=== PATIENT | male | born 1990 | race Caucasian/White ===

== ENCOUNTER 2016-11-19 13:20 | Emergency (ER) | payer MEDICAID, OTHER ==
[2016-11-19 13:32] VITALS: BP 151/90
[2016-11-19 14:22] LABS: Urine Bilirubin Negative (Negative); Urine Glucose Negative (Negative); Urine Nitrite Negative (Negative)
[2016-11-19 14:34] LABS: Benzodiazepine Urine Screen None Detected (None Detect)
[2016-11-19] MEDS ORDERED: LORazepam TAB(*) 0.5 MG PO ONE ×2 (14:38)
[2016-11-19] MEDS ORDERED: Nicotine Inhaler* 10 MG AMP INH ONE ×2 (14:40)
[2016-11-19 14:53] LABS: Hematocrit 49 % (42-52); Mean Corpuscular HGB Conc 35 g/dl (31-36); Mean Corpuscular Hemoglobin 31 pg (27-31); Mean Corpuscular Volume 90 fL (80-94); Mean Platelet Volume 8 um3 (7.4-10.4); Red Blood Count 5.46 10^6/ul (4.0-5.4); Red Cell Distribution Width 13 % (10.5-15); White Blood Count 11.4 10^3/ul (3.5-10.8)
[2016-11-19] MEDS ORDERED: Mouth Piece, Nicotine* 1 EACH CARTRIDGE INH PRN (15:00)
[2016-11-19 15:04] LABS: ALT 41 U/L (7-52); AST 27 U/L (13-39); Albumin 4.7 g/dL (3.2-5.2); Alkaline Phosphatase 85 U/L (34-104); Anion Gap 8 mmol/L (2-11); BUN/Creatinine Ratio 9.4 (8-20); Blood Urea Nitrogen 8 mg/dL (6-24); CO2 Carbon Dioxide 24 mmol/L (22-32); Chloride 105 mmol/L (101-111); EGFR African American 142.4 (>60); EGFR Non-African American 110.7 (>60); Glucose 96 mg/dL (70-100); Potassium 3.9 mmol/L (3.5-5.0); Sodium 137 mmol/L (133-145); Total Protein 7.7 g/dL (6.4-8.9)
[2016-11-19 15:39] LABS: TSH (Thyroid Stimulating Horm) 2.31 mcIU/mL (0.34-5.60)
[2016-11-19 15:42] LABS: Acetaminophen < 15 mcg/mL; Alcohol < 10 mg/dL (<10); Salicylate < 2.50 mg/dL (<30)
[2016-11-19] MEDS ORDERED: LORazepam TAB(*) 1 MG PO ONE ×2 (16:02)
--- NOTE | 2016-11-19 22:06 | ED ---
Terrence Sanchez Billy, scribed for Rafael Cabral MD on 11/19/16 at 1653 . Psychiatric Complaint - HPI Summary HPI Summary: Patient is a 26 year-old male coming to with SI for the last few days. He states that he has a plan to overdose on a bottle of pills. Per nurse's triage note, he has been "masking his pain by smoking" marijuana. He has a history of depression, but no suicide attempts. He denies any other drugs besides marijuana. - History Of Current Complaint Chief Complaint: EDMentalHealth Time Seen by Provider: 11/19/16 13:53 Hx Obtained From: Patient Onset/Duration: Gradual Onset, Lasting Days, Still Present Timing: Constant Severity Initially: Moderate Severity Currently: Moderate Character: Depressed Aggravating Factor(s): Nothing Alleviating Factor(s): Nothing Associated Signs And Symptoms: Positive: Negative Related History: Positive For: Prior Psychiatric Issues Has Suicidal: Reports: Thoughts, With A Plan. Denies: Demonstrates Gesture, Has Prior Attempt(s) Has Homicidal: Denies: Thoughts, With A Plan, Demonstrates Gesture, Has Prior Attempt(s) - Allergies/Home Medications Allergies/Adverse Reactions: Allergies Allergy/AdvReac Type Severity Reaction Status Date / Time Sulfa Drugs Allergy Severe Swelling Verified 11/19/16 13:32 PMH/Surg Hx/FS Hx/Imm Hx Endocrine/Hematology History: Denies: Hx Anticoagulant Therapy, Hx Diabetes, Hx Thyroid Disease Cardiovascular History: Denies: Hx Congestive Heart Failure, Hx Deep Vein Thrombosis, Hx Hypertension , Hx Myocardial Infarction, Hx Pacemaker/ICD Respiratory History: Reports: Hx Asthma - Exercise induced, Other Respiratory Problems/Disorders - CURRENT Denies: Hx Chronic Obstructive Pulmonary Disease (COPD), Hx Lung Cancer GI History: Denies: Hx Gall Bladder Disease, Hx Gastrointestinal Bleed, Hx Ulcer, Hx Urosepsis History: Denies: Hx Kidney Stones, Hx Renal Disease Sensory History: Denies: Hx Hearing Aid Neurological History: Denies: Hx Dementia, Hx Migraine, Hx Seizures, Hx Transient Ischemic Attacks (TIA) Psychiatric History: Reports: Hx Panic Disorder - ANXIETY, Hx Bipolar Disorder Denies: Hx Anxiety, Hx Depression, Hx Schizophrenia - Surgical History Surgery Procedure, Year, and Place: Gallbladder removed 2010, Big toeNAILS bilateralREMOVED, 2007, left knee SCOPE SUREGERY 2009, right hand BROKEN PINKY WITH PINS/THEN REMOVED PINS, ear tubes as a child Infectious Disease History: No Infectious Disease History: Denies: Hx Clostridium Difficile, Hx Hepatitis, Hx Human Immunodeficiency Virus (HIV), Hx of Known/Suspected MRSA, Hx Shingles, Hx Tuberculosis, History Other Infectious Disease, Traveled Outside the [place] in Last 30 Days - Family History Known Family History: Positive: Cardiac Disease, Hypertension, Diabetes - Social History Alcohol Use: None Substance Use Type: Reports: Marijuana Substance Use Comment - Amount & Last Used: occasional use Smoking Status (MU): Heavy Every Day Tobacco Smoker Type: Cigarettes Amount Used/How Often: 1/2 PPD Length of Time of Smoking/Using Tobacco: 8 years Review of Systems Negative: Fever Positive: Depressed, Other - SI All Other Systems Reviewed And Are Negative: Yes Physical Exam - Summary Physical Exam Summary: VITAL SIGNS: Reviewed. GENERAL: Patient is a obese male who is lying comfortable in the stretcher. Patient is not in any acute respiratory distress. HEAD AND FACE: No signs of trauma. No ecchymosis, hematomas or skull depressions. No sinus tenderness. EYES: PERRLA, EOMI x 2, No injected conjunctiva, no nystagmus. EARS: Hearing grossly intact. Ear canals and tympanic membranes are within normal limits. MOUTH: Oropharynx within normal limits. NECK: Supple, trachea is midline, no adenopathy, no JVD, no carotid bruit, no c- spine tenderness, neck with full ROM. CHEST: Symmetric, no tenderness at palpation LUNGS: Clear to auscultation bilaterally. No wheezing or crackles. CVS: Regular rate and rhythm, S1 and S2 present, no murmurs or gallops appreciated. ABDOMEN: Soft, non-tender. No signs of distention. No rebound no guarding, and no masses palpated. Bowel sounds are normal. EXTREMITIES: FROM in all major joints, no edema, no cyanosis or clubbing. NEURO: Alert and oriented x 3. No acute neurological deficits. Speech is normal and follows commands. SKIN: Dry and warm PSYCH: Depressed, quiet, crying, positive suicidal thoughts with plan. No homicidal thoughts or plan. No signs of psychosis or pressure speech. No tangential speech. Triage Information Reviewed: Yes Vital Signs On Initial Exam: Initial Vitals Temp Pulse Resp BP Pulse Ox 99.9 F 86 18 151/90 99 11/19/16 13:25 11/19/16 13:25 11/19/16 13:25 11/19/16 13:25 11/19/16 13:25 Vital Signs Reviewed: Yes Diagnostics - Vital Signs Vital Signs Temp Pulse Resp BP Pulse Ox 11/19/16 13:25 99.9 F 86 18 151/90 99 - Laboratory Lab Results: Lab Results 11/19/16 11/19/16 11/19/16 Range/Units 14:10 14:10 14:35 WBC 11.4 H (3.5-10.8) 10^3/ul RBC 5.46 H (4.0-5.4) 10^6/ul Hgb 17.0 (14.0-18.0) g/dl Hct 49 (42-52) % MCV 90 (80-94) fL MCH 31 (27-31) pg MCHC 35 (31-36) g/dl RDW 13 (10.5-15) % Plt Count 269 (150-450) 10^3/ul MPV 8 (7.4-10.4) um3 Neut % (Auto) 57.7 (38-83) % Lymph % (Auto) 32.3 (25-47) % Vance % (Auto) 7.3 (1-9) % Eos % (Auto) 2.0 (0-6) % Baso % (Auto) 0.7 (0-2) % Absolute Neuts (auto) 6.6 (1.5-7.7) 10^3/ul Absolute Lymphs (auto) 3.7 (1.0-4.8) 10^3/ul Absolute Monos (auto) 0.8 (0-0.8) 10^3/ul Absolute Eos (auto) 0.2 (0-0.6) 10^3/ul Absolute Basos (auto) 0.1 (0-0.2) 10^3/ul Absolute Nucleated RBC 0.01 10^3/ul Nucleated RBC % 0.1 Sodium (133-145) mmol/L Potassium (3.5-5.0) mmol/L Chloride (101-111) mmol/L Carbon Dioxide (22-32) mmol/L Anion Gap (2-11) mmol/L BUN (6-24) mg/dL Creatinine (0.67-1.17) mg/dL Est GFR ( Amer) (>60) Est GFR (Non-Af Amer) (>60) BUN/Creatinine Ratio (8-20) Glucose (70-100) mg/dL Calcium (8.6-10.3) mg/dL Total Bilirubin (0.2-1.0) mg/dL AST (13-39) U/L ALT (7-52) U/L Alkaline Phosphatase (34-104) U/L Total Protein (6.4-8.9) g/dL Albumin (3.2-5.2) g/dL Globulin (2-4) g/dL Albumin/Globulin Ratio (1-3) TSH (0.34-5.60) mcIU/mL Urine Color Yellow Urine Appearance Clear Urine pH 5.0 (5-9) Ur Specific Taylor 1.024 (1.010-1.030) Urine Protein Negative (Negative) Urine Ketones Negative (Negative) Urine Blood Negative (Negative) Urine Nitrate Negative (Negative) Urine Bilirubin Negative (Negative) Urine Urobilinogen Negative (Negative) Ur Leukocyte Esterase Negative (Negative) Urine Glucose Negative (Negative) Salicylates (<30) mg/dL Urine Opiates Screen None detected (None Detect) Acetaminophen mcg/mL Ur Barbiturates Screen None detected (None Detect) Ur Phencyclidine Scrn None detected (None Detect) Ur Amphetamines Screen None detected (None Detect) U Benzodiazepines Scrn None detected (None Detect) Urine Cocaine Screen None detected (None Detect) U Cannabinoids Screen Presumptive positive H (None Detect) Serum Alcohol (<10) mg/dL 11/19/16 Range/Units 14:35 WBC (3.5-10.8) 10^3/ul RBC (4.0-5.4) 10^6/ul Hgb (14.0-18.0) g/dl Hct (42-52) % MCV (80-94) fL MCH (27-31) pg MCHC (31-36) g/dl RDW (10.5-15) % Plt Count (150-450) 10^3/ul MPV (7.4-10.4) um3 Neut % (Auto) (38-83) % Lymph % (Auto) (25-47) % Vance % (Auto) (1-9) % Eos % (Auto) (0-6) % Baso % (Auto) (0-2) % Absolute Neuts (auto) (1.5-7.7) 10^3/ul Absolute Lymphs (auto) (1.0-4.8) 10^3/ul Absolute Monos (auto) (0-0.8) 10^3/ul Absolute Eos (auto) (0-0.6) 10^3/ul Absolute Basos (auto) (0-0.2) 10^3/ul Absolute Nucleated RBC 10^3/ul Nucleated RBC % Sodium 137 (133-145) mmol/L Potassium 3.9 (3.5-5.0) mmol/L Chloride 105 (101-111) mmol/L Carbon Dioxide 24 (22-32) mmol/L Anion Gap 8 (2-11) mmol/L BUN 8 (6-24) mg/dL Creatinine 0.85 (0.67-1.17) mg/dL Est GFR ( Amer) 142.4 (>60) Est GFR (Non-Af Amer) 110.7 (>60) BUN/Creatinine Ratio 9.4 (8-20) Glucose 96 (70-100) mg/dL Calcium 10.0 (8.6-10.3) mg/dL Total Bilirubin 0.60 (0.2-1.0) mg/dL AST 27 (13-39) U/L ALT 41 (7-52) U/L Alkaline Phosphatase 85 (34-104) U/L Total Protein 7.7 (6.4-8.9) g/dL Albumin 4.7 (3.2-5.2) g/dL Globulin 3.0 (2-4) g/dL Albumin/Globulin Ratio 1.6 (1-3) TSH 2.31 (0.34-5.60) mcIU/mL Urine Color Urine Appearance Urine pH (5-9) Ur Specific Taylor (1.010-1.030) Urine Protein (Negative) Urine Ketones (Negative) Urine Blood (Negative) Urine Nitrate (Negative) Urine Bilirubin (Negative) Urine Urobilinogen (Negative) Ur Leukocyte Esterase (Negative) Urine Glucose (Negative) Salicylates < 2.50 (<30) mg/dL Urine Opiates Screen (None Detect) Acetaminophen < 15 mcg/mL Ur Barbiturates Screen (None Detect) Ur Phencyclidine Scrn (None Detect) Ur Amphetamines Screen (None Detect) U Benzodiazepines Scrn (None Detect) Urine Cocaine Screen (None Detect) U Cannabinoids Screen (None Detect) Serum Alcohol < 10 (<10) mg/dL Result Diagrams: 11/19/16 14:35 11/19/16 14:35 Lab Statement: Any lab studies that have been ordered have been reviewed, and results considered in the medical decision making process. Course/Dx - Course Course Of Treatment: Medically cleared for MHE at 1620. Assessment/Plan: Blood work wnl. Patient is medically cleared. Dr. Arguelles from psychiatry cleared the patient from psych and he recommends to discharge patient home with F/U of PMD and psych as an outpatient. - Differential Dx/Clinical Impression Differential Diagnosis/HQI/PQRI: Positive: Suicidal Ideation Provider Diagnosis: Depression, Anxiety Discharge - Discharge Plan Condition: Stable Disposition: HOME Patient Education Materials: Depression (ED), Anxiety (ED) Referrals: Skyler Garsia MD [Primary Care Provider] - The documentation as recorded by the Terrence kumar Billy accurately reflects the service I personally performed and the decisions made by , Rafael Cabral MD.
== END 2016-11-19 19:10 | disposition home or self-care (01) ==
LOC: ED 13:20
DX: R45.851 Suicidal ideations (principal); F32.9 Major depressive disorder, single episode, unspecified; F41.9 Anxiety disorder, unspecified
CPT/HCPCS: 36415; 80053; 80307; 80320; 80329; 81003; 84443; 85025; 99284; A9270-GY; G0480

== ENCOUNTER 2017-02-27 18:49 | Emergency (ER) | payer MEDICAID | END 2017-02-27 19:36 | disposition left against medical advice (07) | LOC: UCCORT 18:49 | DX: R10.9 Unspecified abdominal pain (principal); Z53.21 Procedure and treatment not carried out due to patient leaving prior to being seen by health care provider ==

== ENCOUNTER 2018-06-17 12:45 | Emergency (ER) | payer MEDICAID ==
--- NOTE | 2018-06-17 13:38 | ED ---
Lower Extremity - HPI Summary HPI Summary: This is scribe Kojo Rodger documenting for attending Rafael Cabral MD. A 27 y/o male presents to ED c/o right calf pain reaching 10/10 in severity. In the ED room, the patient has a pulse of 74 BPM, O2 saturation of 98% and blood pressure of 162/69. As per triage, "pt here with severe right lower calf pain for 5 days. unable to bear weight". According to the patient, he has been experiencing severe pain in his right leg calf for the past four days (since Monday). He believes he may have pulled a muscle or done something to it during performance of sexual intercourse. He noted that the calf is swollen and palpation aggravates the pain. He noted that his knee cap feels like it is going to shatter. Pt denies any injury (hitting) or blunt trauma to the area. He also denies any CP, SOB or palpitations. He takes medical marijuana for the pain, however, it has not alleviated the symptoms. Patient has medical marijuana because of his PMHx of chronic back issues. On no other medications. Pt has no other current medical issues. PMHx of cholecystectomy, surgery on toes (both sides), knee surgery, scope surgery. FHx of DM, Alzheimer's and thrombosis. SHx of no recreational drugs (besides medical marijuana), no ciggaretts, no ETOH. I, Dr. Cabral personally performed the services described in this documentation as scribed in my presence and it is both accurate and complete. - History of Current Complaint Chief Complaint: EDExtremityLower Stated Complaint: RT LEG INJURY Time Seen by Provider: 06/17/18 13:19 Hx Obtained From: Patient Mechanism Of Injury: Other - Performance during sexual intercourse. Onset of Pain: Days Onset/Duration: Days Severity Initially: Severe Severity Currently: Severe Pain Intensity: 10 Pain Scale Used: 0-10 Numeric Timing: Constant Location: Is Discrete @ - Right calf. Character Of Pain: Sharp Associated Signs And Symptoms: Positive: Swelling, Knee Pain Aggravating Factor(s): Standing, Movement, Weight Bearing Alleviating Factor(s): Nothing Able to Bear Weight: No - Allergies/Home Medications Allergies/Adverse Reactions: Allergies Allergy/AdvReac Type Severity Reaction Status Date / Time Sulfa (Sulfonamide Allergy Swelling Verified 06/17/18 12:51 Antibiotics) PMH/Surg Hx/FS Hx/Imm Hx Endocrine/Hematology History: Denies: Hx Anticoagulant Therapy, Hx Diabetes, Hx Thyroid Disease Cardiovascular History: Reports: Hx Hypertension Denies: Hx Congestive Heart Failure, Hx Deep Vein Thrombosis, Hx Myocardial Infarction, Hx Pacemaker/ICD Respiratory History: Reports: Hx Asthma - Exercise induced, Other Respiratory Problems/Disorders - CURRENT Denies: Hx Chronic Obstructive Pulmonary Disease (COPD), Hx Lung Cancer GI History: Reports: Hx Gall Bladder Disease, Other GI Disorders - pt states he has some blood in stool, he has started evaluation w/ GI Denies: Hx Gastrointestinal Bleed, Hx Ulcer, Hx Urosepsis History: Denies: Hx Kidney Stones, Hx Renal Disease Musculoskeletal History: Reports: Hx Arthritis, Hx Back Problems Sensory History: Reports: Hx Hearing Problem Denies: Hx Hearing Aid Neurological History: Reports: Hx Headaches, Other Neuro Impairments/Disorders - head injury Denies: Hx Dementia, Hx Migraine, Hx Seizures, Hx Transient Ischemic Attacks (TIA) Psychiatric History: Reports: Hx Panic Disorder - ANXIETY, Hx Bipolar Disorder, Hx of Violent Episodes Against Others Denies: Hx Anxiety, Hx Eating Disorder, Hx Depression, Hx Schizophrenia - Surgical History Surgery Procedure, Year, and Place: Gallbladder removed 2010, Big toeNAILS bilateralREMOVED, 2007, left knee SCOPE SUREGERY 2009, right hand BROKEN PINKY WITH PINS/THEN REMOVED PINS, ear tubes as a child Infectious Disease History: No Infectious Disease History: Denies: Hx Clostridium Difficile, Hx Hepatitis, Hx Human Immunodeficiency Virus (HIV), Hx of Known/Suspected MRSA, Hx Shingles, Hx Tuberculosis, History Other Infectious Disease, Traveled Outside the [place] in Last 30 Days - Family History Known Family History: Positive: Cardiac Disease, Hypertension, Diabetes - Social History Alcohol Use: Rare Substance Use Type: Reports: Marijuana, Prescribed Substance Use Comment - Amount & Last Used: trmadol and he is prescribed maijuana though the [facility] program Smoking Status (MU): Current Some Day Smoker Type: Cigarettes Amount Used/How Often: ! pack every 2-3 days Length of Time of Smoking/Using Tobacco: 8 years Review of Systems Negative: Fever Negative: Palpitations, Chest Pain Negative: Shortness Of Breath Positive: Other - POSITIVE: Right calf pain All Other Systems Reviewed And Are Negative: Yes Physical Exam - Summary Physical Exam Summary: VITAL SIGNS: Reviewed. GENERAL: Patient is a well-developed and obese male who is lying comfortable in the stretcher. Patient is not in any acute respiratory distress. HEAD AND FACE: No signs of trauma. No ecchymosis, hematomas or skull depressions. No sinus tenderness. EYES: PERRLA, EOMI x 2, No injected conjunctiva, no nystagmus. EARS: Hearing grossly intact. Ear canals and tympanic membranes are within normal limits. MOUTH: Oropharynx within normal limits. NECK: Supple, trachea is midline, no adenopathy, no JVD, no carotid bruit, no c- spine tenderness, neck with full ROM. CHEST: Symmetric, no tenderness at palpation LUNGS: Clear to auscultation bilaterally. No wheezing or crackles. CVS: Regular rate and rhythm, S1 and S2 present, no murmurs or gallops appreciated. ABDOMEN: Soft, non-tender. No signs of distention. No rebound no guarding, and no masses palpated. Bowel sounds are normal. EXTREMITIES: Right calf tenderness, reproducible pain with palpation. NEURO: Alert and oriented x 3. No acute neurological deficits. Speech is normal and follows commands. SKIN: Dry and warm Triage Information Reviewed: Yes Vital Signs On Initial Exam: Initial Vitals Temp Pulse Resp BP Pulse Ox 98.7 F 74 22 128/81 98 06/17/18 12:52 06/17/18 12:52 06/17/18 12:52 06/17/18 12:52 06/17/18 12:52 Vital Signs Reviewed: Yes Diagnostics - Vital Signs Vital Signs Temp Pulse Resp BP Pulse Ox 06/17/18 12:52 98.7 F 74 22 128/81 98 - Laboratory Result Diagrams: 06/17/18 14:12 06/17/18 14:12 Lab Statement: Any lab studies that have been ordered have been reviewed, and results considered in the medical decision making process. - Ultrasound No standard instances Ultrasound Interpretation Completed By: Radiologist - DEEP VENOUS THROMBOSIS WITHIN THE POPLITEAL, POSTERIOR TIBIAL AND PERONEAL VEINS. ED PHYSICIAN REVIEWED THIS RADIOLOGY REPORT. Lower Extremity Course/Dx - Course Course Of Treatment: The patient was found to have increased BP in [facility]. The patient will follow up with PCP for better control of BP. Assessment/Plan: This patient is a 27-year-old male who presents to the emergency department with chief complaint of having left calf pain. He reports that the pain has been present for the last couple days but today has worsened. He denies any chest pain, shortness of breath, he denies any palpitations. He has past medical history significant for chronic back pain for which he takes daily medical marijuana and codeine tablets. He also has past medical history significant for cholecystectomyPatient has no other complaints. Blood test results without any significant abnormality. Pylorectomy ultrasound impression: Deep venous thrombosis within the popliteal, posterior tibial and peroneal veins. The patient was given 1 dose of Eliquis and he will be discharged home with a prescription for Eliquis. The patient was given instructions about taking blood thinners and will prevent any type of trauma, also he is unable to take any ibuprofen, NSAIDs medications for pain. He understands and agrees. He is to follow with the primary care physician in the next 2 to 3 days. - Diagnoses Differential Diagnosis/HQI/PQRI: Positive: Bursitis, Cellulitis, Contusion, DVT , Phlebitis, Sprain, Strain Provider Diagnoses: DVT (deep venous thrombosis) Discharge - Sign-Out/Discharge Documenting (check all that apply): Patient Departure - DISCHARGE - Discharge Plan Condition: Critical Disposition: HOME Prescriptions: Apixaban* [Eliquis*] 10 mg PO BID #28 tab Apixaban* [Eliquis*] 5 mg PO BID #32 tab Patient Education Materials: Deep Vein Thrombosis (ED), Leg Edema (ED), Knee Pain (ED), Leg Pain (ED) Referrals: Skyler Garsia MD [Primary Care Provider] - 3 Days Additional Instructions: DO NOT TAKE ANY IBUPROFEN, NAPROXEN OR ANY NONSTEROIDAL ANTI-INFLAMMATORY DRUGS. TAKE ELIQUIS PRESCRIBED. FOLLOW UP WITH PRIMARY CARE IN 3 DAYS. FOLLOW UP WITH YOUR PRIMARY CARE PROVIDER WITHIN ONE WEEK FOR HIGH BLOOD PRESSURE NOTED TODAY. RETURN TO ED FOR ANY WORSENING OR NEW SYMPTOMS. Attestations Scribe Attestation: This is stacy Soares documenting for attending Rafael Cabral MD. User Type: Provider with Scribe Provider Attestation: The documentation recorded by the scribe accurately reflects the service I personally performed and the decisions made by me.
--- NOTE | 2018-06-17 13:56 | RAD ---
INDICATION: Right calf pain. COMPARISON: There are no prior studies available for comparison. TECHNIQUE: Multiple real-time, color flow and Doppler tracings of the right lower extremity were obtained. FINDINGS: The common femoral, femoral and profunda femoral and popliteal veins all demonstrate normal compressibility and phasic response with respiration. There is nearly occlusive thrombus present within the popliteal vein and occlusive thrombus within the posterior tibial and peroneal veins. IMPRESSION: DEEP VENOUS THROMBOSIS WITHIN THE POPLITEAL, POSTERIOR TIBIAL AND PERONEAL VEINS.
[2018-06-17 14:33] LABS: ABS Basophils 0 10^3/ul (0-0.2); ABS Eosinophils 0.2 10^3/ul (0-0.6); ABS Lymphocytes 1.8 10^3/ul (1.0-4.8); ABS Monocytes 1.1 10^3/ul (0-0.8); ABS Neutrophils 7.3 10^3/ul (1.5-7.7); ABS Nucleated RBC 0.1 10^3/ul; Eosinophil % 1.7 % (0-6); Hematocrit 43 % (42-52); Hemoglobin 15.1 g/dl (14.0-18.0); Lymphocyte % 17.4 % (25-47); Mean Corpuscular HGB Conc 35 g/dl (31-36); Mean Corpuscular Hemoglobin 32 pg (27-31); Mean Corpuscular Volume 91 fL (80-94); Mean Platelet Volume 7.9 um3 (7.4-10.4); Nucleated Red Blood Cells % 0.5; Platelet Count 200 10^3/ul (150-450); Red Blood Count 4.71 10^6/ul (4.00-5.40); Red Cell Distribution Width 14 % (10.5-15); White Blood Count 10.4 10^3/ul (3.5-10.8)
[2018-06-17 14:50] LABS: EGFR Non-African American 109.8 (>60)
[2018-06-17 14:51] LABS: Uric Acid 6.8 mg/dL (4.4-7.6)
[2018-06-17 15:24] VITALS: BP 0/0
[2018-06-17] MEDS ORDERED: Apixaban* 5 MG TAB PO SCH (21:00)
== END 2018-06-17 15:17 | disposition home or self-care (01) ==
LOC: ED 12:45
DX: I82.431 Acute embolism and thrombosis of right popliteal vein (principal); I82.441 Acute embolism and thrombosis of right tibial vein; I82.890 Acute embolism and thrombosis of other specified veins; F12.90 Cannabis use, unspecified, uncomplicated; F17.210 Nicotine dependence, cigarettes, uncomplicated; Z83.2 Family history of diseases of the blood and blood-forming organs and certain disorders involving the immune mechanism; Z83.3 Family history of diabetes mellitus; Z82.0 Family history of epilepsy and other diseases of the nervous system; Z88.2 Allergy status to sulfonamides
CPT/HCPCS: 36415; 80053; 84550; 85025; 85652; 86140; 99282

== ENCOUNTER 2018-08-08 13:03 | Emergency (ER) | payer OTHER ==
--- NOTE | 2018-08-08 13:37 | ED ---
HPI Chest Pain - HPI Summary HPI Summary: Patient is a 27 y/o male who presents to the ED c/o CP. The pain woke him up at 11:30 this morning, and is described as 10/10 in severity and sharp/stabbing. Patient describes the pain as if he has a cannonball through him, and is located both in both the front and back of his chest. Sitting up and deep breaths make the pain worse, and lying down makes the pain better. 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 Patient missed 2 doses several days ago. He is a smoker. - History of Current Complaint Chief Complaint: EDChestPainROMI Time Seen by Provider: 08/08/18 13:12 Hx Obtained From: Patient Onset/Duration: Started Hours Ago - 11:30, Still Present Timing: Constant Current Severity: Severe Pain Intensity: 10 Pain Scale Used: 0-10 Numeric Chest Pain Location: Diffuse - Front and back Chest Pain Radiates: Yes Chest Pain Radiates To:: Back Character: Sharp/Stabbing Aggravating Factor(s): Position - Sitting up, Deep Breaths Alleviating Factor(s): Other: - Lying down Associated Signs and Symptoms: Positive: Chest Pain - Allergy/Home Medications Allergies/Adverse Reactions: Allergies Allergy/AdvReac Type Severity Reaction Status Date / Time Sulfa (Sulfonamide Allergy Swelling Verified 06/17/18 12:51 Antibiotics) Home Medications: Home Medications Rivaroxaban TAB(*) [Xarelto 20 mg] 20 mg PO DAILY 08/08/18 [History Confirmed ] PMH/Surg Hx/FS Hx/Imm Hx Endocrine/Hematology History: Denies: Hx Anticoagulant Therapy, Hx Diabetes, Hx Thyroid Disease Cardiovascular History: Reports: Hx Hypertension Denies: Hx Congestive Heart Failure, Hx Deep Vein Thrombosis, Hx Myocardial Infarction, Hx Pacemaker/ICD Respiratory History: Reports: Hx Asthma - Exercise induced, Other Respiratory Problems/Disorders - CURRENT Denies: Hx Chronic Obstructive Pulmonary Disease (COPD), Hx Lung Cancer GI History: Reports: Hx Gall Bladder Disease, Other GI Disorders - pt states he has some blood in stool, he has started evaluation w/ GI Denies: Hx Gastrointestinal Bleed, Hx Ulcer, Hx Urosepsis History: Denies: Hx Kidney Stones, Hx Renal Disease Musculoskeletal History: Reports: Hx Arthritis, Hx Back Problems Sensory History: Reports: Hx Hearing Problem Denies: Hx Hearing Aid Neurological History: Reports: Hx Headaches, Other Neuro Impairments/Disorders - head injury Denies: Hx Dementia, Hx Migraine, Hx Seizures, Hx Transient Ischemic Attacks (TIA) Psychiatric History: Reports: Hx Panic Disorder - ANXIETY, Hx Bipolar Disorder, Hx of Violent Episodes Against Others Denies: Hx Anxiety, Hx Eating Disorder, Hx Depression, Hx Schizophrenia - Surgical History Surgery Procedure, Year, and Place: Gallbladder removed 2010, Big toeNAILS bilateralREMOVED, 2007, left knee SCOPE SUREGERY 2009, right hand BROKEN PINKY WITH PINS/THEN REMOVED PINS, ear tubes as a child - Immunization History Immunizations Up to Date: Yes Infectious Disease History: No Infectious Disease History: Denies: Hx Clostridium Difficile, Hx Hepatitis, Hx Human Immunodeficiency Virus (HIV), Hx of Known/Suspected MRSA, Hx Shingles, Hx Tuberculosis, History Other Infectious Disease, Traveled Outside the [place] in Last 30 Days - Family History Known Family History: Positive: Cardiac Disease, Hypertension, Diabetes - Social History Alcohol Use: Rare Hx Substance Use: Yes Substance Use Type: Reports: Marijuana, Prescribed Substance Use Comment - Amount & Last Used: trmadol and he is prescribed maijuana though the [place] program Hx Tobacco Use: Yes Smoking Status (MU): Current Some Day Smoker Type: Cigarettes Amount Used/How Often: ! pack every 2-3 days Length of Time of Smoking/Using Tobacco: 8 years Review of Systems Negative: Fever Positive: Chest Pain All Other Systems Reviewed And Are Negative: Yes Physical Exam - Summary Physical Exam Summary: VITAL SIGNS: Reviewed. GENERAL: Patient is a well-developed and nourished MALE who is lying comfortable in the stretcher. Patient is not in any acute respiratory distress. HEAD AND FACE: No signs of trauma. No ecchymosis, hematomas or skull depressions. No sinus tenderness. EYES: PERRLA, EOMI x 2, No injected conjunctiva, no nystagmus. EARS: Hearing grossly intact. Ear canals and tympanic membranes are within normal limits. MOUTH: Oropharynx within normal limits. NECK: Supple, trachea is midline, no adenopathy, no JVD, no carotid bruit, no c- spine tenderness, neck with full ROM. CHEST: Symmetric, reproducible chest pain. LUNGS: Clear to auscultation bilaterally. No wheezing or crackles. CVS: Regular rate and rhythm, S1 and S2 present, no murmurs or gallops appreciated. ABDOMEN: Soft, non-tender. No signs of distention. No rebound no guarding, and no masses palpated. Bowel sounds are normal. EXTREMITIES: FROM in all major joints, no edema, no cyanosis or clubbing. NEURO: Alert and oriented x 3. No acute neurological deficits. Speech is normal and follows commands. SKIN: Dry and warm Triage Information Reviewed: Yes Vital Signs On Initial Exam: Initial Vitals Temp Pulse Resp BP Pulse Ox 98.2 F 71 21 133/67 97 08/08/18 13:04 08/08/18 13:04 08/08/18 13:04 08/08/18 13:04 08/08/18 13:04 Vital Signs Reviewed: Yes Diagnostics - Vital Signs Vital Signs Temp Pulse Resp BP Pulse Ox 08/08/18 13:04 98.2 F 71 21 133/67 97 - Laboratory Result Diagrams: 08/08/18 13:41 08/08/18 13:41 Lab Statement: Any lab studies that have been ordered have been reviewed, and results considered in the medical decision making process. - Radiology CXR Xray Interpretation: No Acute Changes - No evidence for acute intrathoracic disease. ED physician reviewed radiology report. Radiology Interpretation Completed By: Radiologist - CT Chest/Thorax CTA CT Interpretation: Positive (See Comments) - MULTIPLE RIGHT LOBAR AND LEFT SEGMENTAL PULMONARY BULLAE DESCRIBED ABOVE. ED physician reviewed radiology report. CT Interpretation Completed By: Radiologist - EKG 13:28 Cardiac Rate: NL - 65 bpm EKG Rhythm: Sinus Rhythm EKG Interpretation: No ST elevation Re-Evaluation - Re-Evaluation First Eval Re-Evaluation Time: 15:55 Change: Unchanged Comment: Spoke to patient about his possible PE. Chest Pain Course/Dx - Course Assessment/Plan: Patient is a 27 y/o male who presents to the ED c/o CP. The pain woke him up at 11:30 this morning, and is described as 10/10 in severity and sharp/stabbing. Patient describes the pain as if he has a cannonball through him, and is located both in both the front and back of his chest. Sitting up and deep breaths make the pain worse, and lying down makes the pain better. 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 Patient missed 2 doses several days ago. He is a smoker. Blood tests without any significant abnormality except for d-dimer of 149, an elevated CPK. Chest x -ray impression: No evidence for acute intrathoracic disease. Chest CT impression: Multiple right lobar and left segmental pulmonary PE. At this point I gave patient Xarelto and he accepted. I discussed the case with Dr. Kitchen from the hospitalist services who accepted the patient for admission. After Dr. Kitchen spoke with the patient here for mental the patient doesn't want stay he wants to go home. Therefore Dr. Kitchen to discharge the patient home with a prescription for Xarelto and pain medication. I still believe that the patient should be admitted to hospital however the patient refuses and Dr. Kitchen is comfortable sending the patient home. Patient is hemodynamically stable alert oriented 3. - Diagnoses Provider Diagnoses: Pulmonary embolism - Provider Notifications Discussed Care Of Patient With: Ted Kitchen Time Discussed With Above Provider: 17:00 Instructed by Provider To: Other - Dr. Kitchen wants the patient to be discharged. - Critical Care Time Critical Care Time: 75-104 min Discharge - Sign-Out/Discharge Documenting (check all that apply): Patient Departure - Discharge - Discharge Plan Condition: Stable Disposition: HOME Prescriptions: oxyCODONE/Acetamin 10/325(NF) [Percocet 10/325 (NF)] 1 tab PO Q4H #10 tab MDD 4 Rivaroxaban TAB(*) [Xarelto 20 mg] 20 mg PO DAILY #30 tab Patient Education Materials: Pulmonary Embolism (ED) Referrals: Skyler Garsia MD [Primary Care Provider] - 3 Days Additional Instructions: RETURN TO THE ED WITH ANY NEW OR WORSENING SYMPTOMS. - Billing Disposition and Condition Condition: STABLE Disposition: Home - Attestation Statements Document Initiated by Scribe: Yes Documenting Scribe: Briana Chapin Provider For Whom Jori is Documenting (Include Credential): Rafael Cabral MD Scribe Attestation: Briana Sanchez, scribed for Rafael Cabral MD on 08/09/18 at 0944. Scribe Documentation Reviewed: Yes Provider Attestation: The documentation as recorded by the Briana kumar accurately reflects the service I personally performed and the decisions made by me, Rafael Cabral MD
--- OUTSIDE RECORDS SUMMARY | 2018-08-08 13:37 | XMS REPORT ---
:1990 External Reference #:[id number] [facility] Address [address] [place] [id number] Phone [phone] Care Team Providers Name Role Phone Rigo Rahman MD Care Team Information Team Member Unavailable Skyler Garsia MD Primary Care Physician Unavailable Payers Type Date Identification Numbers Payment Provider Subscriber Commercial Policy Number: [id number] Butch Casillas Group Name: [id number] [address] PayID: [id number] [place] [address] Commercial Effective: 2016 Policy Number: [id number] Butch Casillas Expires: 2016 Group Name: [id number] [address] PayID: [id number] [place] [address] Medigap Part B Effective: 2015 Policy Number: [id number] Medicaid Sonny Casillas Expires: 2016 PayID: [id number] [address] [place] [address] Commercial Expires: 2015 Policy Number: [employer] Sonny Casillas [id number] Medicaid PayID: [id number] [address] [address] [place] [address] Commercial Expires: 2015 PayID: [id number] Butch Casillas [address] [place] [address] Medigap Part B Expires: 2017 Policy Number: [id number] Medicaid Sonny Casillas Group Number: [id number] [address] Group Name: 1 [address] [place] [address] PayID: [id number] Problems Date Description Provider Status Onset: 04/16/2015 Michelle Childress M.D.,FACP Onset: 04/16/2015 Adult attention deficit Skyler Garsia, Active hyperactivity disorder Rodger,FACP Onset: 04/16/2015 Bipolar I disorder Michelle Acevedo M.D.,FACP Onset: 08/17/2015 Kidney stone Skyler Garsia Active Rodger,FACP Onset: 06/23/2018 Deep venous thrombosis of lower Skyler Garsia Active extremity Rodger,FACP Note: RT Onset: 06/26/2018 Light cigarette smoker (1-9 Skyler Garsia M.D.,FACP Active cigs/day) Family History Date Family Member(s) Problem(s) Comments Father Diabetes Type II Father Heart Disease Father Kidney Disease ESRD Father Non Viral Hepatitis cirrhosis Mother Hypertension Mother Deep Venous Thrombosis (DVT) Children 2 Siblings 2 Paternal Grandfather Deep Venous Thrombosis (DVT) Maternal Grandmother due to Alzheimer's Disease () Social History Type Date Description Comments Marital Status Single Lives With Family Occupation 02/09/2017 Currently Working [employer] Cigarette Use Heavy tobacco smoker (more than 10 cigarettes/day) Cigarette Use currently smokes 1/2 Pack Daily ETOH Use 09/06/2016 Occasionally consumes beer with occasional binge on beer Smoking Patient is a current smoker, smokes every day Recreational Drug Use Regularly uses Marijuana Smoking Smokes 1 pk per 3 days.Started smoking at 18. Smoking Smokes Marijuana as well. Exercise Type/Frequency Exercises rarely General Hx Text 1 daughter Allergies, Adverse Reactions, Alerts Date Description Reaction Status Severity Comments 02/25/2015 Sular active 04/16/2015 Sulfa Antibiotics Anaphylaxis active Severe Medications Medication Date Status Form Strength Qnty SIG Indications Ordering Provider Oxycodone-Acet Active Tablets 10-325mg 40tabs take 1 [place] aminophen 018 tablet by [place], mouth every M.D. 6 hours as needed for pain Xarelto Active Tablets 20mg 30tabs 1 by mouth Skyler Darby every day Kailee Garsia, after M.Kailee,FACP sample pack finished Xarelto Hx Tablets 15mg 42tabs 1 by mouth Skyler Darby - twice a day Kailee Garsia, 08/21/2 for 3 wks M.D.,FACP 018 then 20 mg qd Warfarin Hx Tablets 5mg 90tabs take 1 by Skyler Sodium 018 - mouth every Kailee Garsia, evening or M.D.,FACP 018 as directed until Xarelto available Xarelto Hx Tablets 15mg 42tabs 1 by mouth Skyler 018 - twice a day Kailee Garsia, for 3 wks M.D.,FACP 018 then 20 mg qd Xarelto Hx TBPK 15&20mg 1units 1 15 mg tab Skyler Starter Pack 018 - by mouth Kailee Garsia, twice a day M.D.,FACP 018 x 21 days, then 20 mg once daily, take with evening meal(Sample starter pack given Oxycodone-Acet Hx Tablets 5-325mg 16tabs take 1 to 2 [place] aminophen 017 - tablets by Shy, mouth every M.D. 018 8 hours as needed pain Cipro Hx Tablets 500mg 14tabs 1 by mouth Other 017 - twice a day Ordering Provider 017 No Active Hx Unknown Medications 016 - 016 Tizanidine HCL Hx Tablets 4mg 60tabs take one Skyler 016 - tablet by Kailee Garsia, mouth three M.D.,FACP 018 times daily as needed Ziprasidone Hx Capsules 40mg 60caps 1 by mouth R45.4 Skyler HCL 016 - twice a day Kailee Garsia, M.D.,FACP 016 No Active Hx Unknown Medications 016 - 016 Abilify Hx Tablets 5mg 30tabs 1 by mouth R45.4 Skyler 016 - every day Kailee Garsia, M.D.,FACP 016 No Active Hx Unknown Medications 016 - 016 Sertraline HCL Hx Tablets 50mg 30tabs 1/2tab qd R45.4 Skyler 016 - for 10 days D. Torrington, then 1 by Rodger,FACP 016 mouth every day Gabapentin Hx Capsules 100mg 240cap 1 tab po 724.3 Skyler 015 - s qid for 4 D. Torrington, days, then M.Kailee,FACP 016 increase to 2 qid for 4 days, then 3 qid for 4 days,then 4 qid Diazepam Hx Tablets 5mg 10tabs 1 tab 1 724.3 Skyler 015 - hour before D. Torrington, dental Rodger,FACP 016 procedure Gabapentin Hx Capsules 100mg 240cap 1 tab po 721.42 Skyler 015 - s qid for 4 D. Torrington, days, then Rodger,FACP 015 increase to 2 qid for 4 days, then 3 qid for 4 days,then 4 qid No Active Hx Unknown Medications 015 - 015 Oxycodone-Acet 0 Hx Tablets 5-325mg as needed Unknown aminophen 000 - for dental problems. 016 Coumadin 0 Hx Tablets 5mg 1 by mouth Unknown 000 - twice a day 018 Medications Administered in Office Medication Date Status Form Strength Qnty SIG Indications Ordering Provider PPD Administered Injection Nurse Visit 7 A Vital Signs Date Vital Result Comment 07/13/2018 Height 77 inches 6'5" Weight 336.00 lb Heart Rate 77 /min BP Systolic 140 mmHg BP Diastolic 90 mmHg BP Systolic Recheck 120 mmHg BP Diastolic Recheck 82 mmHg O2 % BldC Oximetry 94 % BMI (Body Mass Index) 39.8 kg/m2 06/26/2018 Height 77 inches 6'5" Weight 331.00 lb Heart Rate 81 /min BP Systolic Sitting 128 mmHg BP Diastolic Sitting 84 mmHg O2 % BldC Oximetry 95 % BMI (Body Mass Index) 39.2 kg/m2 02/09/2017 Weight 382.25 lb Heart Rate 62 /min BP Systolic Sitting 118 mmHg BP Diastolic Sitting 86 mmHg Body Temperature 96.8 F O2 % BldC Oximetry 98 % 12/06/2016 Height 77 inches 6'5" Weight 380.00 lb Heart Rate 85 /min BP Systolic 140 mmHg BP Diastolic 98 mmHg Body Temperature 97.6 F O2 % BldC Oximetry 96 % BMI (Body Mass Index) 45.1 kg/m2 11/01/2016 Weight 383.00 lb with shoes Heart Rate 76 /min BP Systolic Sitting 148 mmHg BP Diastolic Sitting 82 mmHg O2 % BldC Oximetry 98 % 09/06/2016 Weight 399.00 lb with shoes Heart Rate 68 /min BP Systolic Sitting 130 mmHg BP Diastolic Sitting 82 mmHg O2 % BldC Oximetry 98 % 05/03/2016 Weight 385.00 lb Heart Rate 74 /min BP Systolic Sitting 144 mmHg BP Diastolic Sitting 82 mmHg O2 % BldC Oximetry 98 % 07/21/2015 Height 77 inches 6'5" Weight 397.75 lb Heart Rate 98 /min BP Systolic Sitting 128 mmHg BP Diastolic Sitting 92 mmHg Body Temperature 97.3 F Pain Level 9 O2 % BldC Oximetry 98 % BMI (Body Mass Index) 47.2 kg/m2 04/20/2015 Height 77 inches 6'5" Weight 350.00 lb Pain Level 6 BMI (Body Mass Index) 41.5 kg/m2 04/16/2015 Height 74 inches 6'2" Weight 391.12 lb Heart Rate 80 /min BP Systolic Sitting 142 mmHg BP Diastolic Sitting 93 mmHg Body Temperature 98.0 F BMI (Body Mass Index) 50.2 kg/m2 03/18/2015 Height 77 inches 6'5" Weight 350.00 lb Pain Level 8 BMI (Body Mass Index) 41.5 kg/m2 02/25/2015 Height 77 inches 6'5" Weight 350.00 lb Heart Rate 86 /min BP Systolic 133 mmHg BP Diastolic 85 mmHg Body Temperature 97.7 F Pain Level 9 BMI (Body Mass Index) 41.5 kg/m2 Results Test Date Test Result H/L Range Note Protime W/ Inr 06/26/2018 Prothrombin Time 1.2 Inr 13.9 CBC Auto Diff 06/17/2018 White Blood Count 10.4 10^3/uL 3.5-10.8 Red Blood Count 4.71 10^6/uL 4.00-5.40 Hemoglobin 15.1 g/dL 14.0-18.0 Hematocrit 43 % 42-52 Mean Corpuscular Volume 91 fL 80-94 Mean Corpuscular Hemoglobin 32 pg High 27-31 Mean Corpuscular HGB Conc 35 g/dL 31-36 Red Cell Distribution Width 14 % 10.5-15 Platelet Count 200 10^3/uL 150-450 Mean Platelet Volume 7.9 um3 7.4-10.4 Abs Neutrophils 7.3 10^3/uL 1.5-7.7 Abs Lymphocytes 1.8 10^3/uL 1.0-4.8 Abs Monocytes 1.1 10^3/uL High 0-0.8 Abs Eosinophils 0.2 10^3/uL 0-0.6 Abs Basophils 0 10^3/uL 0-0.2 Abs Nucleated RBC 0.1 10^3/uL Granulocyte % 70.4 % 38-83 Lymphocyte % 17.4 % Low 25-47 Monocyte % 10.2 % High 0-7 Eosinophil % 1.7 % 0-6 Basophil % 0.3 % 0-2 Nucleated Red Blood Cells % 0.5 Laboratory test finding 06/17/2018 Erythrocyte Sed Rate 26 mm/Hr High 0- 14 Comp Metabolic Panel 06/17/2018 Sodium 139 mmol/L 135-145 Potassium 3.9 mmol/L 3.5-5.0 Chloride 107 mmol/L 101-111 Co2 Carbon Dioxide 28 mmol/L 22-32 Anion Gap 4 mmol/L 2-11 Glucose 97 mg/dL 70-100 Blood Urea Nitrogen 8 mg/dL 6-24 Creatinine 0.85 mg/dL 0.67-1.17 BUN/Creatinine Ratio 9.4 8-20 Calcium 9.4 mg/dL 8.6-10.3 Total Protein 6.8 g/dL 6.4-8.9 Albumin 4.2 g/dL 3.2-5.2 Globulin 2.6 g/dL 2-4 Albumin/Globulin Ratio 1.6 1-3 Total Bilirubin 1.00 mg/dL 0.2-1.0 Alkaline Phosphatase 79 U/L 34-104 Alt 19 U/L 7-52 Ast 15 U/L 13-39 Egfr Non- 109.8 >60 Egfr 132.9 >60 1 Laboratory test finding 06/17/2018 Uric Acid 6.8 mg/dL 4.4-7.6 C Reactive Protein 29.37 mg/L High <8.01 Urine Drug SCR ED & 11/19/2016 Amphetamine Ur Screen None Detected None Detect Pain Clinic Barbiturates Urine Screen None Detected None Detect Benzodiazepine Urine Screen None Detected None Detect Urine Cannabinoids Screen Presumptive Posi <SEE NOTE> None Detect 2 Urine Cocaine Screen None Detected None Detect Urine Opiates Screen None Detected None Detect Urine Phencyclidine Screen None Detected None Detect 3 Laboratory test finding 11/19/2016 TSH (Thyroid Stim Horm) 2.31 mcIU/mL 0.34-5.60 Acetaminophen < 15 g/mL 4 Alcohol < 10 mg/dL <10 Salicylate < 2.50 mg/dL <30 Urinalysis Profile 11/19/2016 Urine Color Yellow Urine Appearance Clear Urine Specific [place] 1.024 1.010-1.030 Urine pH 5.0 5-9 Urine Urobilinogen Negative Negative Urine Ketones Negative Negative Urine Protein Negative Negative Urine Leukocytes Negative Negative Urine Blood Negative Negative Urine Nitrite Negative Negative Urine Bilirubin Negative Negative Urine Glucose Negative Negative Comp Metabolic Panel 11/19/2016 Sodium 137 mmol/L 133-145 Potassium 3.9 mmol/L 3.5-5.0 Chloride 105 mmol/L 101-111 Co2 Carbon Dioxide 24 mmol/L 22-32 Anion Gap 8 mmol/L 2-11 Glucose 96 mg/dL 70-100 Blood Urea Nitrogen 8 mg/dL 6-24 Creatinine 0.85 mg/dL 0.67-1.17 BUN/Creatinine Ratio 9.4 8-20 Calcium 10.0 mg/dL 8.6-10.3 Total Protein 7.7 g/dL 6.4-8.9 Albumin 4.7 g/dL 3.2-5.2 Globulin 3.0 g/dL 2-4 Albumin/Globulin Ratio 1.6 1-3 Total Bilirubin 0.60 mg/dL 0.2-1.0 Alkaline Phosphatase 85 U/L 34-104 Alt 41 U/L 7-52 Ast 27 U/L 13-39 Egfr Non- 110.7 >60 Egfr 142.4 >60 5 CBC Auto Diff 11/19/2016 White Blood Count 11.4 10^3/uL High 3.5-10.8 Red Blood Count 5.46 10^6/uL High 4.0-5.4 Hemoglobin 17.0 g/dL 14.0-18.0 Hematocrit 49 % 42-52 Mean Corpuscular Volume 90 fL 80-94 Mean Corpuscular Hemoglobin 31 pg 27-31 Mean Corpuscular HGB Conc 35 g/dL 31-36 Red Cell Distribution Width 13 % 10.5-15 Platelet Count 269 10^3/uL 150-450 Mean Platelet Volume 8 um3 7.4-10.4 Abs Neutrophils 6.6 10^3/uL 1.5-7.7 Abs Lymphocytes 3.7 10^3/uL 1.0-4.8 Abs Monocytes 0.8 10^3/uL 0-0.8 Abs Eosinophils 0.2 10^3/uL 0-0.6 Abs Basophils 0.1 10^3/uL 0-0.2 Abs Nucleated RBC 0.01 10^3/uL Granulocyte % 57.7 % 38-83 Lymphocyte % 32.3 % 25-47 Monocyte % 7.3 % 1-9 Eosinophil % 2.0 % 0-6 Basophil % 0.7 % 0-2 Nucleated Red Blood Cells % 0.1 HIV 1/2 AB Evaluation 09/06/2016 HIV 1 2 Antibody Nonreactive Nonreactive 6 Laboratory test finding 09/06/2016 C Reactive Protein 3.53 mg/L < 5.00 7 CBC Auto Diff 09/06/2016 White Blood Count 8.8 10^3/uL 3.5-10.8 Red Blood Count 5.39 10^6/uL 4.0-5.4 Hemoglobin 16.7 g/dL 14.0-18.0 Hematocrit 48 % 42-52 Mean Corpuscular Volume 90 fL 80-94 Mean Corpuscular Hemoglobin 31 pg 27-31 Mean Corpuscular HGB Conc 35 g/dL 31-36 Red Cell Distribution Width 13 % 10.5-15 Platelet Count 300 10^3/uL 150-450 Mean Platelet Volume 9 um3 7.4-10.4 Abs Neutrophils 5.1 10^3/uL 1.5-7.7 Abs Lymphocytes 2.7 10^3/uL 1.0-4.8 Abs Monocytes 0.7 10^3/uL 0-0.8 Abs Eosinophils 0.3 10^3/uL 0-0.6 Abs Basophils 0.1 10^3/uL 0-0.2 Abs Nucleated RBC 0 10^3/uL Granulocyte % 58.2 % 38-83 Lymphocyte % 30.2 % 25-47 Monocyte % 7.5 % 1-9 Eosinophil % 3.4 % 0-6 Basophil % 0.7 % 0-2 Nucleated Red Blood Cells % 0 1 Because ethnic data is not always readily available, this report includes an eGFR for both -Americans and non- Americans. The National Kidney Disease Education Program (NKDEP) does not endorse the use of the MDRD equation for patients that are not between the ages of 18 and 70, are , have extremes of body size, muscle mass, or nutritional status, or are non- or non-. According to the National Kidney Foundation, irrespective of diagnosis, the stage of the disease is based on the level of kidney function: Stage Description GFR(mL/min/1.73 m(2)) 1 Kidney damage with normal or decreased GFR 90 2 Kidney damage with mild decrease in GFR 60-89 3 Moderate decrease in GFR 30-59 4 Severe decrease in GFR 15-29 5 Kidney failure <15 (or dialysis) 2 Presumptive Positive Presumptive positive results are unconfirmed. 3 The urine specimen was tested at the listed cutoffs: Drug class test level (ng/mL) Amphetamines 500 Barbiturates 200 Benzodiazepine metabolites 200 Cocaine metabolites 150 Cannabinoids 50 Opiates 300 Pcp 25 Specimen was received without chain of custody. Results should be used for medical purposes only. 4 Therapeutic concentration: <50 ug/mL Toxic concentration: >120 ug/mL 5 Because ethnic data is not always readily available, this report includes an eGFR for both -Americans and non- Americans. The National Kidney Disease Education Program (NKDEP) does not endorse the use of the MDRD equation for patients that are not between the ages of 18 and 70, are , have extremes of body size, muscle mass, or nutritional status, or are non- or non-. According to the National Kidney Foundation, irrespective of diagnosis, the stage of the disease is based on the level of kidney function: Stage Description GFR(mL/min/1.73 m(2)) 1 Kidney damage with normal or decreased GFR 90 2 Kidney damage with mild decrease in GFR 60-89 3 Moderate decrease in GFR 30-59 4 Severe decrease in GFR 15-29 5 Kidney failure <15 (or dialysis) 6 It is recognized that currently available assays for the detection of antibodies to HIV-1 and/or HIV-2 may not detect all infected individuals. HIV antibodies may be undetectable in some stages of the infection and in some clinical conditions. The performance of this assay has not been established for populations of infants or children. Assayed by Chemiluminescence Microparticle Immunoassay on the Siemens Advia Centaur CP. Values obtained with different methods or kits cannot be used interchangeably.The diagnostic specificity of the ADVIA Centaur 1/O/2 Enhanced assay in the low risk population was 99.90% (6052/6058) with a 95% confidence interval of 99.78 to 99.96%. 7 Acute inflammation: >10.00 Procedures Description No Information Encounters Type Date Location Provider CPT E/M Dx Office Visit 06/26/2018 [facility] Skyler Garsia, 10600 I82.431 11:00a - Martin Soares,FACP Office Visit 02/09/2017 [facility] Skyler Garsia, 84269 M54.30 2:20p - Cyn Radford M.D.,FACP K62.5 Office Visit 12/06/2016 9:30a [facility] Skyler Garsia, 66700 M54.30 - Martin Soares,FACP K62.5 I82.4Y2 F31.32 Office Visit 11/01/2016 10:10a [facility] Skyler Garsia, 46581 R45.4 - Martin Soares,FACP M54.30 K62.5 Office Visit 09/06/2016 11:10a [facility] Skyler Garsia, 06571 K57.32 - Martin Soares,FACP R45.4 Office Visit 05/03/2016 4:40p [facility] Skyler Garsia, 55775 R45.4 - Mratin Soares,FACP Z11.4 Office Visit 07/21/2015 11:10a [facility] Skyler Garsia, 94593 724.3 - Martin Soares,FACP 524.79 Office Visit 04/20/2015 2:00p [facility] M.D. 23939 721.42 C.M.A. 727.09 Office Visit 04/16/2015 9:30a [facility] Skyler Garsia, 09546 V70.0 - Cyn Radford M.D.,FACP 721.42 453.41 724.2 V12.51 729.5 Office Visit 03/18/2015 3:30p [facility] M.D. 03258 721.42 C.M.A. 724.4 Office Visit 02/25/2015 10:00a [facility] M.D. 71780 836.1 C.M.A. Office Visit 09/02/2010 1:00p [facility] M.D. 41686 844.1 C.M.A. Office Visit 08/12/2010 1:00p [facility] 45669 844.1 C.M.A. RPA-C Office Visit 07/27/2010 9:30a [facility] M.D. 45595 844.1 C.M.A. Plan of Care Future Appointment(s):08/28/2018 8:00 am - Skyler Garsia M.D.,FACP at [facility]07/13/2018 - Skyler Garsia M.D.,FACPI82.431 Acute embolism and thrombosis of right popliteal veinComments:Continue taking Xarelto as prescribed.M54.31 Sciatica, right sideComments:Follow up with pain clinic as discussed. Continue taking Oxycodone- Acetaminophen as needed.Referral :Pain Clinic, Pain/Clinic/CTRF31.32 Bipolar disorder, current episode depressed , moderate
[2018-08-08 13:54] LABS: ABS Basophils 0 10^3/ul (0-0.2); ABS Eosinophils 0.2 10^3/ul (0-0.6); ABS Lymphocytes 1.6 10^3/ul (1.0-4.8); ABS Monocytes 0.8 10^3/ul (0-0.8); ABS Neutrophils 3.9 10^3/ul (1.5-7.7); ABS Nucleated RBC 0 10^3/ul; Eosinophil % 3.2 % (0-6); Hematocrit 44 % (42-52); Hemoglobin 15.4 g/dl (14.0-18.0); Lymphocyte % 24.1 % (25-47); Mean Corpuscular HGB Conc 35 g/dl (31-36); Mean Corpuscular Hemoglobin 32 pg (27-31); Mean Corpuscular Volume 91 fL (80-94); Mean Platelet Volume 7.7 um3 (7.4-10.4); Nucleated Red Blood Cells % 0.3; Platelet Count 223 10^3/ul (150-450); Red Blood Count 4.81 10^6/ul (4.00-5.40); Red Cell Distribution Width 14 % (10.5-15); White Blood Count 6.6 10^3/ul (3.5-10.8)
[2018-08-08 14:03] LABS: INR 0.96 (0.77-1.02)
--- NOTE | 2018-08-08 14:12 | RAD ---
INDICATION: Chest pain exercise-induced. History of tobacco use. COMPARISON: January 22, 2015 TECHNIQUE: Dual energy PA and routine lateral views of the chest were obtained. REPORT: Large body habitus limits image quality. No focal pulmonary lesion, compelling alveolar consolidation, pleural effusion, pneumothorax. The heart, pulmonary vasculature, and mediastinal contours are unremarkable. IMPRESSION: #. No evidence for acute intrathoracic disease.
[2018-08-08 14:18] LABS: EGFR Non-African American 128.9 (>60)
[2018-08-08] MEDS ORDERED: Morphine VIAL* 10 MG/ML 1 ML VIAL IV ONE (14:52)
[2018-08-08] MEDS ORDERED: Morphine INJ* 4 MG/ML 1 ML SYRINGE (NEW SYRINGE VERSION) ONE (14:59)
[2018-08-08] MEDS ORDERED: Morphine INJ* 4 MG/ML 1 ML SYRINGE (NEW SYRINGE VERSION) IV ONE (15:02)
[2018-08-08] MEDS ORDERED: Iohexol 350* (CONTRAST) 500 ML MDV IV ONE (15:04)
--- NOTE | 2018-08-08 15:59 | RAD ---
HISTORY: CHest pain , sob not taking meds for PE COMPARISONS: None TECHNIQUE: Multiple contiguous axial CT scans of the chest were obtained after the administration of nonionic intravenous contrast, timed to the pulmonary arterial phase of contrast enhancement.. Coronal and sagittal multiplanar reformations are also submitted for review. FINDINGS: NECK AND THYROID: The lower neck and thyroid are unremarkable. CHEST WALL: There is no lower cervical, axillary, or supraclavicular lymphadenopathy by size criteria. HEART AND PERICARDIUM: The heart is unremarkable. AORTA AND PULMONARY VASCULATURE: There are filling defects of the pulmonary artery consistent with pulmonary emboli within the segmental branches to the left lower lobe and within the lobar and segmental branches of the right middle and right lower lobes. MEDIASTINUM: There is no mediastinal lymphadenopathy by size criteria. KEVIN: There is no hilar lymphadenopathy by size criteria. AIRWAY AND ESOPHAGUS: The airway is unremarkable, without endobronchial filling defect. The esophagus is grossly normal. LUNG PARENCHYMA: The lungs are clear. PLEURA: No pleural abnormalities are noted. UPPER ABDOMEN: The upper abdomen is unremarkable. BONES AND SOFT TISSUES: No bone or soft tissue abnormalities are noted. OTHER: None. IMPRESSION: MULTIPLE RIGHT LOBAR AND LEFT SEGMENTAL PULMONARY BULLAE DESCRIBED ABOVE. PRELIMINARY FINDINGS WERE DISCUSSED WITH DR. JAUREGUI IN THE EMERGENCY DEPARTMENT AT APPROXIMATELY 3:54 PM ON AUGUST 08, 2018 .
[2018-08-08] MEDS ORDERED: Rivaroxaban TAB(*) 15 MG PO ONE (16:03)
--- NOTE | 2018-08-08 16:52 | PN ---
"Progress Note - Progress Note Date of Service: 08/08/18 Note: is report was requested by: Ted Kitchen | Reference #: [id number] Others' Prescriptions Patient Name: Sonny Casillas Date: 1990 Address: [address] [place] [address] Sex: Male Rx Written Rx Dispensed Drug Quantity Days Supply Prescriber Name 07/10/2018 07/11/2018 oxycodone-acetaminophen 10-325 mg tab 40 10 Josep Begum MD 06/22/2018 06/23/2018 oxycodone-acetaminophen 5-325 mg tablet 16 4 Josep Begum MD Patient Name: Sonny Casillas Date: 1990 Address: [address] [place] [id number] Sex: Male Rx Written Rx Dispensed Drug Quantity Days Supply Prescriber Name 08/11/2017 08/15/2017 codeine sulfate 30 mg tablet 180 30 Zachariah Hood MD"
[2018-08-08 17:44] VITALS: BP 126/90
--- NOTE | 2018-08-08 21:20 | CONS ---
CC: Dr. Skyler Garsia * MEDICAL CONSULTATION: DATE OF CONSULT: 08/08/18 - EMERGENCY DEPT HISTORY OF PRESENT ILLNESS: Dr. Cabral has kindly asked me to see this patient and I examined him on 08/08/18. He was treated for deep venous thrombosis of the right leg on 06/17/18. He was given apixaban at that time. I am not sure he took the entire prescription. He has been poorly compliant of his medications. He saw Dr. Garsia. He was given free sample of a starter pack of 21 days of rivaroxaban 15 mg twice a day, then 7 days of rivaroxaban 20 mg daily. He picked up the rivaroxaban prescription on 06/26/18. He was supposed to be getting switched to the 20 mg tablets, but was given 42, 15 mg tablets, which will be the initial starting dose. He did not take any of this new prescription. He has not finished the starter pack yet. The starter pack should have finished about 3 weeks ago. The patient admits that when he drinks , he does not like to many medication. I am not really clear how many days a week he drinks. He also says he has a poor memory and everyday is like a new day. He does not have any counting device such as a 7-day container to help him take his medications regularly. He came into the emergency room today because of left-sided chest pain. CTA showed bilateral pulmonary emboli. He is not in any distress. He does complain of pain in the left. I note he has been treated for chronic pain by Dr. Izaguirre with medical marijuana. Dr. Begum has prescribed oxycodone/acetaminophen 10/325, 40 tablets, on 07/11/18 , to be given up to 4 times a day. He also had a prescription for oxycodone/ acetaminophen 5/325, 16 tablets, on 06/23/18, from Dr. Begum. Dr. Hood dispensed codeine 30 mg 180 tablets on 08/11/17. PHYSICAL EXAM: The patient's blood pressure was 127/89, oxygen saturation was 96% on room air, heart rate 63, and he was afebrile. He did not appear in any distress, although he said he had left-sided chest pain. He was breathing slowly and easily. HEENT was unremarkable. Neck was supple. There was no JVD , adenopathy, or thyromegaly. Heart and lungs were clear to auscultation and percussion. Abdomen was obese. There was no pedal edema. There was no calf tenderness. Skin was warm and dry and intact. Neurologic was intact. He moved all limbs well. There was no tremor. PLAN: 1. The patient is stable for discharge. I emphasized to him several important things about his condition. First of all that it was a serious condition that is sometimes fatal and that if he took his medications, he would be okay. Next that he needed to have some type of device like a 7-day container for knowing that he took his medication. Next, he should take his medications every day as prescribed without fail. He should not drink more than 2 beers a day. If he drank 1 or 2 beers in a day, he could still take his medication. 2. He needs to follow up with Dr. Garsia within a week or so and will need close supervision by Dr. Garsia, probably with counting his pills in his bottle. FINAL DIAGNOSES: 1. Multiple pulmonary emboli. 2. Posttraumatic stress disorder. DISCHARGE MEDICATIONS: 1. Rivaroxaban 15 mg b.i.d. for 21 days followed by rivaroxaban 20 mg once a day. 2. Oxycodone/acetaminophen 10/325 one every 4 hours p.r.n. [id number]/[facility] #: [id number] [facility]ITALRachael
== END 2018-08-08 17:42 | disposition home or self-care (01) ==
LOC: ED 13:03
DX: I26.99 Other pulmonary embolism without acute cor pulmonale (principal); F43.10 Post-traumatic stress disorder, unspecified; F17.210 Nicotine dependence, cigarettes, uncomplicated; Z86.718 Personal history of other venous thrombosis and embolism; Z79.01 Long term (current) use of anticoagulants; Z53.29 Procedure and treatment not carried out because of patient's decision for other reasons; Z88.2 Allergy status to sulfonamides
CPT/HCPCS: 36415; 71046; 71275; 80053; 82550; 82553; 83605; 83735; 83880; 84443; 84484; 85025; 85379; 85610; 85730; 93005; 96374; 99284; J2270; Q9967